=== PATIENT | female | born 1980 | race Caucasian/White ===

== ENCOUNTER 2017-04-13 08:14 | Day surgery (SDC) | payer BC, MEDICAID ==
--- NOTE | 2017-04-13 08:12 | PCM.PREANE ---
Preanesthetic Assessment - Anesthesia/Transfusion/Family Hx Anesthesia History: Prior Anesthesia Without Reaction Family History of Anesthesia Reaction: No Transfusion History: No Prior Transfusion(s) Intubation History: Unknown - Review of Systems General: No Symptoms Pulmonary: No Symptoms (Asthma/smokes 1/2 pack/day times 17 yrs.) Cardiovascular: No Symptoms (history of HTN), Dyspnea on Exertion Gastrointestinal: No symptoms Neurological: No Symptoms Other: Reports: None - Physical Assessment NPO Status Date: 04/12/17 NPO Status Time: 23:40 Pulse: 96 O2 Sat by Pulse Oximetry: 97 Respiratory Rate: 16 Blood Pressure: 150/92 Temperature: 36.9 C Height: 1.68 m Weight: 72.121 kg ASA Class: 2 Mental Status: Alert & Oriented x3 Airway Class: Mallampati = 2 Dentition: Reports: Normal Dentition, Dentures, Partial, Caries Thyro-Mental Finger Breadths: 3 Mouth Opening Finger Breadths: 3 Lungs: Clear to auscultation, Normal respiratory effort Cardiovascular: Regular Rate, Regular Rhythm, No Murmurs - Lab Values: Lab values reviewed and noted and within acceptable ranges to proceed with scheduled procedure. MRSA screen negative. - Imaging/EKG Impressions: CXR: No acute abnormality - Allergies Allergies/Adverse Reactions: Allergies Allergy/AdvReac Type Severity Reaction Status Date / Time No Known Allergies Allergy Verified 04/13/17 08:51 - Anesthesia Plan Pre-Op Medication Ordered: None - Acknowledgements Anesthesia Type Planned: General Anesthesia Pt an Appropriate Candidate for the Planned Anesthesia: Yes Alternatives and Risks of Anesthesia Discussed w Pt/Guardian: Yes Pt/Guardian Understands and Agrees with Anesthesia Plan: Yes PreAnesthesia Questionnaire HEENT History: Reports: Impaired Vision, Other (See Below) Other HEENT History: patient wears monthly contacts Cardiovascular History: Reports: Hypertension Respiratory History: Reports: None Gastrointestinal History: Reports: None 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: Musculoskeletal History: Reports: Other (See Below) Other Musculoskeletal History: current R achilles tendon rupture, L arm fracture Neurological History: Reports: None Psychiatric History: Reports: None Endocrine/Metabolic History: Reports: None Hematologic History: Reports: None Immunologic History: Reports: None Oncologic (Cancer) History: Reports: None Dermatologic History: Reports: None - Past Surgical History Head Surgeries/Procedures: Reports: None Respiratory Surgical History: Reports: None GI Surgical History: Reports: None Female Surgical History: Reports: Section Male Surgical History: Reports: None Endocrine Surgical History: Reports: None Neurological Surgical History: Reports: None Dermatological Surgical History: Reports: None - SUBSTANCE USE Smoking Status *Q: Current Every Day Smoker Recreational Drug Use History: Yes Recreational Drug Type: Reports: Methamphetamine - HOME MEDS Home Medications: Home Meds Aspirin 325 mg PO BID #84 tablet 04/13/17 [Rx] Cyclobenzaprine [Flexeril] 10 mg PO Q8H PRN #40 tablet 04/13/17 [Rx] Hydrocodone/Acetaminophen [Bennett 5-325 Tablet] 1 - 2 each PO Q6H PRN #40 tablet 04/13/17 [Rx] - CURRENT (IN HOUSE) MEDS Current Meds: Current Medications Lactated Ringer's (Ringers, Lactated) 1,000 mls @ 125 mls/hr IV ASDIRECTED KIN Stop: 04/13/17 23:00 Lidocaine/Sodium Bicarbonate (Buffered Lidocaine 1% In Ns 8.4%) 0.25 ml .XX ONETIME PRN PRN Reason: Prior to IV Start Stop: 04/13/17 18:00 Sodium Chloride (Saline Flush) 10 ml FLUSH ASDIRECTED PRN PRN Reason: Keep Vein Open Stop: 04/13/17 18:00 Discontinued Medications Bupivacaine HCl (Marcaine 0.25%) Confirm Administered Dose 30 ml .ROUTE .STK- MED ONE Stop: 04/13/17 07:30 Cefazolin Sodium (Ancef) Confirm Administered Dose 2 gm .ROUTE .STK-MED ONE Stop: 04/13/17 06:59 Dexamethasone (Dexamethasone) Confirm Administered Dose 8 mg .ROUTE .STK-MED ONE Stop: 04/13/17 06:59 Fentanyl (Sublimaze) Confirm Administered Dose 250 mcg .ROUTE .STK-MED ONE Stop: 04/13/17 07:00 Lidocaine HCl (Xylocaine-Mpf 1%) Confirm Administered Dose 4 mls @ as directed .ROUTE .STK-MED ONE Stop: 04/13/17 06:59 Lactated Ringer's (Ringers, Lactated) Confirm Administered Dose 1,000 mls @ as directed .ROUTE .STK-MED ONE Stop: 04/13/17 06:59 Ketorolac Tromethamine (Toradol) Confirm Administered Dose 30 mg .ROUTE .STK- MED ONE Stop: 04/13/17 06:59 Midazolam HCl (Versed 1 Mg/Ml) Confirm Administered Dose 2 mg .ROUTE .STK-MED ONE Stop: 04/13/17 06:59 Ondansetron HCl (Zofran) Confirm Administered Dose 4 mg .ROUTE .STK-MED ONE Stop: 04/13/17 06:59 Propofol (Diprivan 20 Ml) Confirm Administered Dose 200 mg .ROUTE .STK-MED ONE Stop: 04/13/17 06:59 Rocuronium Crawford (Zemuron) Confirm Administered Dose 50 mg .ROUTE .STK-MED ONE Stop: 04/13/17 06:59
[~2017-04-13 08:14] MED LIST: Bupivacaine 0.25% 30 ML SDV ONE; Bupivacaine 0.5% 30 ML SDV ONE; Dexamethasone 4 MG/ML SDV ONE; Ketorolac 30 MG/ML SDV ONE; Lactated Ringers 1,000 ML IV SCH; Lactated Ringers 1,000 ML ONE; Lidocaine 1% 4 ML ONE; Lidocaine 1%/Sod Bicarbonate in NS 8.4% 1 ML Syringe PRN; Midazolam 1 MG/ML 2 ML SDV ONE; Ondansetron 4 MG/2 ML SDV ONE; Propofol 200 MG/20 ML SDV ONE; Rocuronium 50 MG/5 ML Vial ONE; Sodium Chloride 0.9% 10 ML Syringe FLUSH PRN; ceFAZolin 1 GM Vial ONE; fentaNYL 250 MCG/5 ML SDV ONE
[2017-04-13] MEDS ORDERED: Bupivacaine 0.25% 30 ML SDV ONE (08:31)
[2017-04-13] MEDS ORDERED: HYDROmorphone 1 MG/ML Syringe ONE (08:50)
[2017-04-13] MEDS ORDERED: diphenhydrAMINE 50 MG/ML SDV IVPUSH PRN (09:28)
[2017-04-13] MEDS ORDERED: Midazolam 1 MG/ML 2 ML SDV IVPUSH PRN (09:28)
[2017-04-13] MEDS ORDERED: Ondansetron 4 MG/2 ML SDV IVPUSH PRN (09:28)
[2017-04-13] MEDS ORDERED: Meperidine PF 50 MG/ML Syringe IVPUSH PRN (09:28)
[2017-04-13] MEDS ORDERED: HYDROmorphone 0.5 MG/0.5 ML Syringe IVPUSH PRN (09:28)
--- NOTE | 2017-04-13 10:42 | PCM.POSTAN ---
POST ANESTHESIA ASSESSMENT - MENTAL STATUS Mental Status: somnolent - VITAL SIGNS Pulse Rate: 94 SaO2: 99 Resp Rate: 14 Blood Pressure: 135/88 Temperature: 36.5 C - RESPIRATORY Respiratory Status: respiratory rate WNL, airway patent, O2 saturation stable, supplemental oxygen - CARDIOVASCULAR CV Status: pulse rate WNL, blood pressure stable - GASTROINTESTINAL GI Status: no symptoms - PAIN Pain Score: 0 - POST OP HYDRATION Hydration Status: adequate & stable - OBSERVATIONS Free Text/Narrative:: no anesthetic complications noted
[2017-04-13] MEDS: fentaNYL 100 MCG/2 ML SDV IVPUSH PRN ×3 (10:54→11:14)
[2017-04-13] MEDS: HYDROmorphone 0.5 MG/0.5 ML Syringe IVPUSH PRN ×2 (10:57→11:12)
[2017-04-13] MEDS ORDERED: Acetaminophen/HYDROcodone 325-5 MG Tab PO SCH (12:30)
[2017-04-13 13:58] VITALS: BP 128/91
--- NOTE | 2017-04-19 21:57 | PCM.OPNOTE ---
- General Post-Op/Procedure Note Date of Surgery/Procedure: 04/13/17 Operative Procedure(s): primary achilles tendon rupture repair, right Pre Op Diagnosis: right achilles tendon rupture Post-Op Diagnosis: Same Anesthesia Technique: General ET tube, Local Primary Surgeon: Dallin Castro Anesthesia Provider: Andres Smith Maintenance Craftsman: Sherri Parkinson EBL in mLs: 10 Complications: None Condition: Good
--- NOTE | 2017-04-19 22:42 | OR ---
DATE OF OPERATION: 04/13/2017 SURGEON: Dallin Castro MD OPERATION PERFORMED: Primary Achilles tendon rupture repair on the right. PREOPERATIVE DIAGNOSIS: Right Achilles tendon rupture. POSTOPERATIVE DIAGNOSIS: Right Achilles tendon rupture. ANESTHESIA: General endotracheal intubation with local. ANESTHESIA PROVIDER: Andres Smith CRNA PAVING FOREMAN: Sherri Parkinson PA-C. ESTIMATED BLOOD LOSS: Less than 10 mL. COMPLICATIONS: None. CONDITION: Stable. DESCRIPTION OF PROCEDURE: The patient was identified in the preop holding area, proper site was marked and identified by the surgeon. The patient was taken back to the operating theater after adequate anesthesia. The patient was placed in the prone position. All bony prominences were well padded. The patient's head and neck was secured. At this time, right lower extremity was then sterilely prepped and draped in the usual sterile fashion. OR time-out was performed. The patient received 2 g IV Ancef. A nonsterile tourniquet was applied previously and the right lower extremity was elevated and tourniquet was insufflated 250 mmHg. Standard medial incision was made. Next, the Achilles tendon was taken down to the paratenon. Paratenon was incised along the length. The Achilles tendon rupture ends were then identified and debrided back to good tissue using a rongeur and a #15 blade scalpel. At this time, the patient's foot was brought into plantar flexion. A Krackow stitch was then used both on the proximal end and the distal end of the Achilles tendon rupture with 2 limbs from each the proximal and distal aspect. The limbs were then tied on either side of the fracture. The needle was then used to bring the knot stack through the repair so that it would not be irritating the skin. This was then oversewn with 0 Vicryl over the top of the repair site to make sure there was a good smooth border around the repair site. Adequate saline was then irrigated through the wound. 0 Vicryl was then used for closure of the paratenon. 3-0 Vicryl was used subcutaneously and nylon simple stitches were used for closure of the skin. The patient had a sterile soft dressing applied along with posterior slab splint. She was sent to PACU in stable condition. MMODAL /[id number]
== END 2017-04-13 13:25 | disposition home or self-care (01) ==
LOC: JD.SDS 08:14
PROVIDERS: ATTEND Orthopaedic Surgery
PROC: 0LQN0ZZ Repair Right Lower Leg Tendon, Open Approach (ICD-10-PCS; principal; 2017-04-13)
DX: S86.011A Strain of right Achilles tendon, initial encounter (principal); Y93.31 Activity, mountain climbing, rock climbing and wall climbing; I10 Essential (primary) hypertension; F17.210 Nicotine dependence, cigarettes, uncomplicated; F15.21 Other stimulant dependence, in remission
CPT/HCPCS: 27650; A9270; J0690; J1100; J1170; J1885; J2250; J2405; J3010; J7120; 01472; J2704; J3490